=== PATIENT | male | born 1950 | race Caucasian/White ===

== ENCOUNTER 2016-12-28 09:27 | Emergency (ER) | payer MEDICARE, BC ==
[2016-12-28 09:34] VITALS: BP 171/81; PULSE 86; RESP 20; TEMP 97.5
[2016-12-28] MEDS ORDERED: HYDROmorphone 1 MG/ML 1 ML SYRINGE IVP STA (09:44)
[2016-12-28] MEDS ORDERED: ONDANSETRON 4 MG/2 ML VIAL IVP STA (09:44)
[2016-12-28] MEDS ORDERED: SODIUM CHLORIDE 0.9% 1,000 ML IV STA (09:44)
[2016-12-28] MEDS ORDERED: KETOROLAC 30 MG/ML 1 ML VIAL IVP STA (09:44)
[2016-12-28 10:13] LABS: Basophils % (A) 0 %; CH 29.3; CHCM 32.7; Eosinophils # (A) 0.1 k/uL (0-0.7); Eosinophils % (A) 1 %; HCT 44.3 % (39.0-53.0); HDW 2.56; HGB 14.5 gm/dL (13.0-17.5); Luc # (Auto) 0.17; Luc % (Auto) 2; Lymphocytes # (A) 1.3 k/uL (1.0-4.8); Lymphocytes % (A) 18 %; MCH 29.4 pg (25.0-35.0); MCHC 32.7 g/dL (31.0-37.0); Monocytes # (A) 0.4 k/uL (0-1.0); Monocytes % (A) 6 %; Neutrophils # (A) 5.2 k/uL (1.3-7.7); Neutrophils % (A) 73 %; RBC 4.92 m/uL (4.30-5.90); RDW 13.8 % (11.5-15.5); WBC 7.2 k/uL (3.8-10.6); WBC (Perox) 7.21
--- NOTE | 2016-12-28 10:15 | ED ---
General Adult HPI - General Chief complaint: Abdominal Pain Stated complaint: Poss Kidney Stone Time Seen by Provider: 12/28/16 09:40 Source: patient, RN notes reviewed Mode of arrival: ambulatory Limitations: no limitations - History of Present Illness Initial comments: Patient 66-year-old male significant past medical history for any stones, who presents emergency room today with chief complaint of right-sided flank pain that started this morning. Patient does admit that it seems consistent with kidney stones that is had in the past. He states she's had multiple over the last 16 years. He denies any other complaints or associated symptoms. Currently rates pain 10/. Patient denies any recent fever, chills, shortness of breath, chest pain, vomiting, numbness or tingling, dysuria or hematuria, constipation or diarrhea, headaches or visual changes, or any other complaints. - Related Data Home Medications Medication Instructions Recorded Confirmed Atenolol [Atenolol] 25 mg PO HS 12/28/16 12/28/16 Lisinopril [Zestril] 5 mg PO QAM 12/28/16 12/28/16 Olmesartan Medoxomil [Olmesartan 40 mg PO QAM 12/28/16 12/28/16 Medoxomil] Tadalafil [Cialis] 5 mg PO HS 12/28/16 12/28/16 Previous Rx's Medication Instructions Recorded Ciprofloxacin HCl [Cipro] 500 mg PO Q12HR #7 day 12/28/16 Hydrocodone/Acetaminophen [[place] 1 each PO Q6HR PRN #20 tab 12/28/16 5-325] Ibuprofen [Motrin] 600 mg PO Q6HR PRN #40 day 12/28/16 Ondansetron Odt [Zofran ODT] 4 mg PO Q8HR PRN #20 tab 12/28/16 Allergies Allergy/AdvReac Type Severity Reaction Status Date / Time No Known Allergies Allergy Verified 12/28/16 10:56 Review of Systems ROS Statement: Those systems with pertinent positive or pertinent negative responses have been documented in the HPI. ROS Other: All systems not noted in ROS Statement are negative. Past Medical History Past Medical History: Hypertension Additional Past Medical History / Comment(s): kidney stones History of Any Multi-Drug Resistant Organisms: MRSA Date of last positivie culture/infection: 2015 MDRO Source:: Spine after surgery Past Surgical History: Cholecystectomy, Orthopedic Surgery Additional Past Surgical History / Comment(s): TURP, lithotripsy Past Psychological History: No Psychological Hx Reported Smoking Status: Never smoker Past Alcohol Use History: Occasional Past Drug Use History: None Reported General Exam - General Exam Comments Initial Comments: General: The patient is awake and alert, in no distress, and does not appear acutely ill. Eye: Pupils are equal, round and reactive to light, extra-ocular movements are intact. No nystagmus. There is normal conjunctiva bilaterally. No signs of icterus. Ears, nose, mouth and throat: There are moist mucous membranes and no oral lesions. Neck: The neck is supple, there is no tenderness or JVD. Cardiovascular: There is a regular rate and rhythm. No murmur, rub or gallop is appreciated. Respiratory: Lungs are clear to auscultation, respirations are non-labored, breath sounds are equal. No wheezes, stridor, rales, or rhonchi. Gastrointestinal: Soft, non-distended, non-tender abdomen without masses or organomegaly noted. There is no rebound or guarding present. No CVA tenderness. Bowel sounds are unremarkable. Musculoskeletal: Normal ROM, no tenderness. Strength 5/5. Sensation intact. Pulses equal bilaterally 2+. Neurological: A&O x 3. CN II-XII intact, There are no obvious motor or sensory deficits. Coordination appears grossly intact. Speech is normal. Skin: Skin is warm and dry and no rashes or lesions are noted. Psychiatric: Cooperative, appropriate mood & affect, normal judgment. Limitations: no limitations Course Vital Signs 12/28/16 09:31 Temperature 97.5 F L Pulse Rate 86 Respiratory 20 Rate Blood Pressure 171/81 O2 Sat by Pulse 98 Oximetry Medical Decision Making - Medical Decision Making Patient reexamined at this time shows no signs of distress. Patient's labs reviewed shows evidence of hematuria. Some white cells. She does admit that symptoms are consistent with kidney stones that is had in the past. Does admit that he sees urologist on [place] but has seen Dr. Vazquez here locally as well. Patient will be discharged home placed on pain medication, nausea medication and antibiotic to cover for any infection. Advised to return here to the emergency room symptoms increase worsen or for any other concerns - Lab Data Result diagrams: 12/28/16 09:55 12/28/16 09:55 Lab Results 12/28/16 12/28/16 12/28/16 Range/Units 09:55 09:55 10:45 WBC 7.2 (3.8-10.6) k/uL RBC 4.92 (4.30-5.90) m/uL Hgb 14.5 (13.0-17.5) gm/dL Hct 44.3 (39.0-53.0) % MCV 90.0 (80.0-100.0) fL MCH 29.4 (25.0-35.0) pg MCHC 32.7 (31.0-37.0) g/dL RDW 13.8 (11.5-15.5) % Plt Count 222 (150-450) k/uL Neutrophils % 73 % Lymphocytes % 18 % Monocytes % 6 % Eosinophils % 1 % Basophils % 0 % Neutrophils # 5.2 (1.3-7.7) k/uL Lymphocytes # 1.3 (1.0-4.8) k/uL Monocytes # 0.4 (0-1.0) k/uL Eosinophils # 0.1 (0-0.7) k/uL Basophils # 0.0 (0-0.2) k/uL Sodium 141 (137-145) mmol/L Potassium 4.3 (3.5-5.1) mmol/L Chloride 107 (98-107) mmol/L Carbon Dioxide 24 (22-30) mmol/L Anion Gap 10 mmol/L BUN 20 (9-20) mg/dL Creatinine 1.16 (0.66-1.25) mg/dL Est GFR (MDRD) Af Amer >60 (>60 ml/min/1.73 sqM) Est GFR (MDRD) Non-Af >60 (>60 ml/min/1.73 sqM) Glucose 110 H (74-99) mg/dL Calcium 9.5 (8.4-10.2) mg/dL Total Bilirubin 0.4 (0.2-1.3) mg/dL AST 27 (17-59) U/L ALT 32 (21-72) U/L Alkaline Phosphatase 95 (38-126) U/L Total Protein 6.8 (6.3-8.2) g/dL Albumin 3.9 (3.5-5.0) g/dL Lipase 115 (23-300) U/L Urine Color Yellow Urine Appearance Cloudy (Clear) Urine pH 5.0 (5.0-8.0) Ur Specific [place] 1.018 (1.001-1.035) Urine Protein 1+ H (Negative) Urine Glucose (UA) Negative (Negative) Urine Ketones Negative (Negative) Urine Blood Large H (Negative) Urine Nitrite Negative (Negative) Urine Bilirubin Negative (Negative) Urine Urobilinogen <2.0 (<2.0) mg/dL Ur Leukocyte Esterase Trace H (Negative) Urine RBC 51 H (0-5) /hpf Urine WBC 7 H (0-5) /hpf Ur Squamous Epith Cells <1 (0-4) /hpf Urine Mucus Rare H (None) /hpf Disposition Clinical Impression: Kidney stone Disposition: HOME SELF-CARE Condition: Good Instructions: Kidney Stones (ED) Additional Instructions: Please use medication as discussed. Please follow-up with urology/family doctor in the next 2 days of symptoms have not improved. Please return to emergency room if the symptoms increase or worsen or for any other concerns. Prescriptions: Ciprofloxacin HCl [Cipro] 500 mg PO Q12HR #7 day Hydrocodone/Acetaminophen [[place] 5-325] 1 each PO Q6HR PRN #20 tab PRN Reason: Pain Ibuprofen [Motrin] 600 mg PO Q6HR PRN #40 day PRN Reason: Pain Ondansetron Odt [Zofran ODT] 4 mg PO Q8HR PRN #20 tab PRN Reason: Nausea Referrals: Amari Linn MD [Primary Care Provider] - 1-2 days Boni Fitzgerald MD [STAFF PHYSICIAN] - 1-2 days Time of Disposition: 11:48
[2016-12-28 10:23] LABS: ALT 32 U/L (21-72); AST 27 U/L (17-59); Alkaline Phosphatase 95 U/L (38-126); Anion Gap 10 mmol/L; Blood Urea Nitrogen 20 mg/dL (9-20); Calcium 9.5 mg/dL (8.4-10.2); Carbon Dioxide 24 mmol/L (22-30); Chloride 107 mmol/L (98-107); Glucose 110 mg/dL (74-99); Non-African American GFR(MDRD) >60 (>60 ml/min/1.73 sqM); Potassium 4.3 mmol/L (3.5-5.1); Sodium 141 mmol/L (137-145); Total Bilirubin 0.4 mg/dL (0.2-1.3); Total Protein 6.8 g/dL (6.3-8.2)
--- NOTE | 2016-12-28 10:29 | XR ---
Abdomen HISTORY: Pain, right-sided kidney stones Frontal view of the abdomen submitted on 2 images and correlated to prior abdomen film 10/17/2011 Surgical clips are present in the right upper quadrant. Lung bases are clear. Heart is enlarged. No p neumoperitoneum or bowel obstruction. Calcification questioned in the left paraspinal location at eric roximately the L3-4 disc space measuring approximately 6 mm. Overlying bowel gas may obscure detail. Left-sided renal calcifications are not as well seen at the lower pole. IMPRESSION: Findings may represent ureteral calculus on the left.
[2016-12-28 11:19] LABS: Appearance,Urine Cloudy (Clear); Bilirubin,Urine Negative (Negative); Glucose,Urine (UA) Negative (Negative); Ketones,Urine Negative (Negative); Leukocyte Esterase,Urine Trace (Negative); Mucus,Urine Rare /hpf; Nitrite,Urine Negative (Negative); Particle Count 4938; Protein,Urine 1+ (Negative); RBC,Urine 51 /hpf (0-5); Specific Gravity,Urine 1.018 (1.001-1.035); Squamous Epithelial Cell,Urine <1 /hpf (0-4); UA Billing (MACRO vs. MICRO) MICRO; Urobilinogen,Urine <2.0 mg/dL (<2.0); WBC,Urine 7 /hpf (0-5)
== END 2016-12-28 12:08 | disposition home or self-care (01) ==
LOC: EC 09:27
DX: N20.0 Calculus of kidney (principal); I10 Essential (primary) hypertension; Z86.14 Personal history of Methicillin resistant Staphylococcus aureus infection; Z90.49 Acquired absence of other specified parts of digestive tract; Z79.899 Other long term (current) drug therapy
CPT/HCPCS: 36415; 80053; 83690; 85025; 81001; 87086; 74000; 99284; 96374; 96375 ×2; 96361 ×2; J2405; J1885; J1170

== ENCOUNTER → 2017-01-04 | Outpatient (CLI) | payer MEDICARE, BC ==
--- NOTE | 2017-01-04 15:16 | CT ---
EXAMINATION TYPE: CT abdomen pelvis wo con DATE OF EXAM: 01/04/2017 COMPARISON: NONE HISTORY: History of kidney stones bilaterally. Right flank pain. CT DLP: 2791.10 mGycm Automated exposure control for dose reduction was used. FINDINGS: There is subsegmental atelectasis at the right lung base. Visualized portions of the lungs are otherwise clear. The heart is upper limits of normal in size. There is no pleural or pericardial fluid. There is elevation of the right hemidiaphragm. There is a 4 cm low attenuating, well-defined lesion in the dome of the liver. This likely represents a cyst. This could be confirmed with ultrasound. The gallbladder is been removed. The spleen is norm al. Both adrenal glands are normal. There are bilateral renal calculi. The largest on the right is in the posterior middle pole calyx annabelle sures and measures 12 mm. There are 2 7 mm calculi in the lower pole calyces of the left kidney, one in the anterior and one in the posterior calyx. There is bilateral hydronephrosis. There is stranding about the kidneys, worse on the right than the left. There is hydroureter. There is a 10.8 mm calculus in the right ureter in its distal one third. There is a 5 mm calculus in the left ureter approximately 2.5 cm proximal to the UVJ on the left. The pancreas is unremarkable. There is no significant retroperitoneal, iliac or inguinal adenopathy. The bladder is decompressed. There is extensive diverticular change involving the left side of the colon with scattered diverticul a elsewhere throughout the colon. The appendix is not visualized. Small bowel loops are normal. There is no free fluid and no free air identified. There is a wedge compression fracture of T11 which appears old. There is evidence of Forestier's dise ase within the spine. No bony destructive lesion is seen. IMPRESSION: 1. BILATERAL NEPHROLITHIASIS. 2. BILATERAL URETEROLITHIASIS WITH HYDRONEPHROSIS, GREATER ON THE RIGHT THAN THE LEFT. 3. EXTENSIVE DIVERTICULOSIS OF THE COLON. 4. 4 CM LESION IN THE DOME OF THE LIVER LIKELY REPRESENTS A CYST. THIS COULD BE CONFIRMED WITH ULTRAS OUND. 5. CHRONIC WEDGE COMPRESSION FRACTURE OF T11. 6. FORESTIER'S DISEASE.
== END | disposition home or self-care (01) ==
LOC: RADCTMAIN 14:19
PROVIDERS: ATTEND Urology
DX: N13.2 Hydronephrosis with renal and ureteral calculous obstruction (principal); K57.30 Diverticulosis of large intestine without perforation or abscess without bleeding; K76.9 Liver disease, unspecified
CPT/HCPCS: 74176